=== PATIENT | female | born 1935 | race Caucasian/White ===

== ENCOUNTER 2024-08-09 13:49 | Day surgery (SDC) | payer OTHER, SELFPAY ==
[2024-08-09] VITALS (16 sets, daily range): BP systolic 127–200; BP diastolic 59–91; BMI 31.1; BMI 30.2
[2024-08-09 10:10] LABS: % Basophils 0.3 % (0-2); % Eosinophils 2.5 % (0-6); % Immature Granulocytes 0.3 % (0-0.5); % Lymphocytes 9.2 % (20.5-51.1); % Monocytes 6.9 % (1.7-9.3); % Neutrophils 80.8 % (42.2-75.2); Absolute Eosinophils 0.3 10^3/uL (0-0.7); Absolute Lymphocytes 1.1 10^3/uL (1.2-3.4); Absolute Monocytes 0.8 10^3/uL (0.1-0.6); Absolute Neutrophils 9.4 10^3/uL (1.4-6.5); Hematocrit 39.4 % (37.0-47.0); Hemoglobin 13.6 g/dL (12.0-16.0); Mean Corp Hgb Conc. 34.5 g/dL (33.0-37.0); Mean Corpuscular Hgb 26.9 pg (27.0-31.0); Mean Platelet Volume 10.2 fL (7.4-10.4); Nucleated Red Blood Cells % 0 %; Platelet Count 247 10^3/uL (130-400); Red Blood Cell Count 5.05 10^6/uL (4.20-5.40); Red Cell Dist. Width 14.6 % (11.5-14.5); White Blood Cell Count 11.6 10^3/uL (4.8-10.8)
[2024-08-09 10:38] LABS: ALT (SGPT) 17 U/L (0-35); AST (SGOT) 27 U/L (14-36); Albumin 4.2 g/dl (3.5-5.0); Alkaline Phosphatase 76 U/L (38-126); Blood Urea Nitrogen 15 mg/dl (7-17); Carbon Dioxide 20 mmol/L (22-30); Chloride 102 mmol/L (98-107); Glucose 111 mg/dl (70-99); Potassium 4.2 mmol/L (3.5-5.1); Sodium 135 mmol/L (135-145); Total Bilirubin 0.7 mg/dl (0.2-1.3); Total Protein 6.5 g/dl (6.3-8.2); eGFR 54.19
--- NOTE | 2024-08-09 11:46 | ED.GENMED ---
History of Present Illness
General
Chief Complaint: Dizziness
Source: patient
Exam Limitations: none
Time Seen by Provider: 08/09/24 10:51
Nursing documentation reviewed up to this point in time: agreed with
History of Present Illness
History of Present Illness:
89-year-old female with a past medical history of hypertension, hyperlipidemia, GERD, history of heart block status post PPM (Medtronic) who presents to the ER for evaluation of lightheadedness. Patient reports symptoms started 2 days ago and they
have been constant since that time. She reports consistent symptoms�not clearly positional. She denies syncope. She denies any associated chest pain or palpitations. She denies feeling short of breath. Has not noticed any swelling or pain in
legs. She denies any recent illness or GI symptoms�no nausea, vomiting, diarrhea. Denies any UTI symptoms. She does note that she was recently started on a new blood pressure medication (eplerenone) about a week ago by her landfill gas technician (
Yoandy). She says that when she checked her blood pressure over the past 2 days she noticed that it was running lower (she says the lowest blood pressure was 105 systolic) and so she discontinued the eplerenone yesterday thinking that it could be
causing her symptoms but when they did not improve she came to the emergency room. She does note that she had her pacemaker interrogated during her most recent cardiology visit in early July and was told that her pacemaker battery is nearing
end-of-life.
Past History
Past History
ED Past Medical History: GERD, HTN, Hypercholesterolemia and Other (Sinusitis,)
ED Past Surgical History: Cardiac (Pacemaker), Cholecystectomy and Gynecological (Total hysterectomy)
Social History
Tobacco: Non-smoker
Alcohol: None
Personal:
Living: alone
Employment: Retired
Review of Systems
Review of Systems
All Other Systems: ROS reviewed and negative except as documented in HPI and ROS
Constitutional: Reports fatigue; Denies fever or chills
EENT: Denies sore throat or runny nose
Respiratory: Denies cough or trouble breathing
Cardiac: Denies chest pain, diaphoresis, palpitations or syncope
ABD/GI: Denies abdominal pain, nausea, vomiting or diarrhea
: Denies dysuria, frequency or flank pain
Musculoskeletal: Denies edema, neck pain or back pain
Neurological: Reports dizzy; Denies headache
Phy Exam
Physical Exam
Physical Exam:
General: Awake, alert, oriented x3; no acute distress
Head: Normocephalic, atraumatic
Eyes: Conjunctiva normal, pupils equal round reactive to light bilaterally
Throat: Airway intact, handling secretions
Neck: Trachea midline
Lungs: Clear to auscultation bilaterally, no wheezing, rales, rhonchi
Heart: Regular rate and rhythm, no murmurs, gallops, or rubs
Abd: Soft, non distended, nontender
Neuro: Cranial nerves grossly intact, speech fluid, no gross motor or sensory deficits
Extremities: No edema in extremities, equal pulses in all extremities
Scores
Heart Failure Risk
Heart Failure Risk Score: Not Applicable
Heart Score for Chest Pain Patients
STEMI patient?: Not applicable
Withdrawal Assessment of Alcohol
Withdrawal Assessment Completed?: Not applicable
Course
Orders/Labs/Results
Orders:
Orders
08/09/24 09:40
ECG [Electrocardiogram (*1)] Urgent
Reason for Study: Vertigo / Dizzy
EKG- Treatment ONCE
08/09/24 09:53
Complete Blood Count/With Diff Urgent
Comprehensive Metabolic Panel Urgent
08/09/24 Lunch
NPO
Allow oral meds: Yes
Allow clear liquids: No
08/09/24 10:52
Interrogate Pacemaker- Treatment ONCE
08/09/24 11:46
CARDIOLOGY CONSULT Urgent
Consulting Provider: David Pete
Was physician already notified: Yes
09/17/24 13:26
Admit/Transfer Patient As Directed
Co-Sign Provider:
Level of Care: Observation services
Assign to:: IVU
Physician / Group: CBC
Diagnosis: AV dysynchrony
Reason for Hospitalization: Symptomatic pacemaker syndrome
PRN Pain Medication Management As Directed
May give lesser potent ordered pain med per pt: Yes
preference::
Protocol:: Medication orders for pain may be administered in a
manner that supports deferring to patient preference
when the pt is:
- Requesting an ordered lesser potent pain medication.
Least to most potent pain medications are defined
as: acetaminophen < NSAID < tramadol < opioids
(morphine, oxycodone, hydromorphone).
- Requesting a lesser dose of the same medication IF
ORDERED.
- Requesting a less intrusive route of administration
if both routes are prescribed by the provider (PO <
IV).
Abnormal Lab Results
08/09/24
09:53
WBC 11.6 H 10^3/uL
(4.8-10.8)
MCV 78.0 L fL
(81.0-99.0)
MCH 26.9 L pg
(27.0-31.0)
RDW 14.6 H %
(11.5-14.5)
Absolute Neuts (auto) 9.4 H 10^3/uL
(1.4-6.5)
Absolute Lymphs (auto) 1.1 L 10^3/uL
(1.2-3.4)
Absolute Monos (auto) 0.8 H 10^3/uL
(0.1-0.6)
Neutrophils % 80.8 H %
(42.2-75.2)
Lymphocytes % 9.2 L %
(20.5-51.1)
Carbon Dioxide 20 L mmol/L
(22-30)
Glucose 111 H mg/dl
(70-99)
08/09/24 09:53
08/09/24 09:53
Vital Signs
Initial and Last Documented VS:
Initial Vital Signs
Temp Pulse Resp BP Pulse Ox
37.2 C 65 16 155/71 97
08/09/24 09:37 08/09/24 09:37 08/09/24 09:37 08/09/24 09:37 08/09/24 09:37
Last Documented Vital Signs
Temp Pulse Resp BP Pulse Ox
37.2 C 65 15 152/73 97
08/09/24 09:37 08/09/24 11:30 08/09/24 11:30 08/09/24 11:00 08/09/24 11:30
MDM/Problems Addressed
Differential Diagnosis Includes:
Symptomatic anemia, dehydration/electrolyte derangement, infection, pacemaker syndrome, medication side effect/polypharmacy
MDM/Problems Addressed:
89-year-old female presents for evaluation of lightheadedness and fatigue for the past 2 days�initially she thought it was related to her recently started blood pressure medication but discontinued this yesterday and symptoms have persisted. She is
actually mildly hypertensive here to 155/71 still feels mildly lightheaded. Rest of vitals normal. Physical exam as above. EKG in triage showed ventricular paced rhythm�received a call from reviewing landfill gas technician (who happened to be Dr. Pitt,
patient's primary landfill gas technician) concerned that patient may be experiencing pacemaker syndrome as she does not appear to have AV synchrony on EKG. Will interrogate her device. Check labs including CBC and CMP. Will reassess after the above.
Labs reviewed: CBC shows marginal leukocytosis 11.6, normal hemoglobin. CMP no clinically significant abnormalities. I received report from [facility] and patient's pacemaker did changed to VVI mode yesterday due to low battery; this correlates
with onset of patient's symptoms. Case discussed with cardiology for assessment, concern for pacemaker syndrome.
Cardiology evaluated, will go for generator change later today.
Chronic conditions affecting care:
Heart block status post pacemaker
Acute Exacerbation and/or Progression of Chronic Illness:
Acutely hypertensive
Acute Exacerbation and/or Progression of Chronic Illness: HTN
*Pulse Oximetry
Patient hypoxic: no
*EKG
Interpreted by ED Provider?: Yes
Heart Rate: 65
Rate: normal
Rhythm: ventricular paced
*Critical Care Note
Total Time (30-74mins, 75-104mins- exclusive of procedures): Not Applicable
Data Reviewed
Review of Other/Old Records Reveals: Labs and Records
Source: patient, records and physician
Patient Management
Discussion with other providers: Nuclear Design Engineer (Discussed with cardiology)
Escalation/DeEscalation of care consider admission/obs:
To cardiology service
ED Attending Note
-
Portions of this chart may have been created with voice recognition software.� Occasional wrong word or��sound alike� substitutions may have occurred due to the inherent limitations of voice recognition software.
Discharge Plan
Departure
Patient Disposition: Admit
Date of Disposition: 08/09/24
Time of Disposition: 13:53
Admit to doctor: Juan R
Presentation/result/management discussed w/ accepting MD/DO: cardiology
Discharge Problem:
Pacemaker syndrome
Interventions
Interventions:
*Risk Screen - Suicide Last Done: 08/09/24 11:31
*Neglect/Abuse Screening Last Done: 08/09/24 11:31
ED- Fall Risk Assessment Last Done: 08/09/24 10:45
*ED COVID-19 Vaccine History Last Done: 08/09/24 11:31
ED- Neurological Assessment Last Done: 08/09/24 10:45
ED- Cardiac Assessment Last Done: 08/09/24 10:45
ED Swallowing Screen Last Done: 08/09/24 10:45
--- NOTE | 2024-08-09 13:30 | HPS.HSE ---
Family Physician
-
Family Physician: Eben Jacinto
Trauma Coordinator: Dr. Frederick Pitt
Chief Complaint
-
Dizziness
History of Present Illness
Maira Washington is an 89-year-old female (known to Dr. Pitt, her primary long term care social worker), with complete heart block status post PPM (03/2010), hypertension, dyslipidemia, mild mitral regurgitation, mild tricuspid regurgitation, and paroxysmal
atrial fibrillation (on apixaban), who presented to the ER today with a chief complaint of dizziness. Her dizziness started on Thursday. Initially she thought it correlated with the addition of a new medication, eplerenone. It has been persistent.
She did not take her eplerenone today and has had no improvement. Upon arrival to the ER her Medtronic pacemaker was interrogated. It went into VVI on Thursday when she became symptomatic. She is having no chest pain or shortness of breath.
Medical History
Past Medical History
Past Medical History: Reports Arrhythmia (Paroxysmal atrial fibrillation), GERD, HTN, Hypercholesterolemia and Valvular Disease (Mitral regurgitation, tricuspid regurgitation)
Past Surgical History: Reports Appendectomy and Cholecystectomy
Social History
Tobacco: Non-smoker
Alcohol: None
Drug: None
Employment: Retired
Family History
Family History: Not pertinent
Allergies / Home Medications
Allergies reflects when Allergies were last updated in [facility].
Home Medications with original date entered in [facility]
Allergy/Medication List:
Allergies/intolerances:
Egg
Ibuprofen
Aldactone
Amlodipine
Home medication list:
Ativan 1 mg twice daily as needed anxiety
Diovan HCT 320-25 mg p.o. daily
Apixaban 5 mg p.o. twice daily
Ezetimibe-simvastatin 10-20 mg once daily
Labetalol 200 mg p.o. twice daily
Lansoprazole 30 mg p.o. daily
Montelukast 10 mg p.o. daily
Eplerenone 25 mg daily
Review of Systems
-
History Source: Patient
A 12 point ROS was completed and negative except as noted: Yes
Constitutional: Reports Fatigue
EENT: Reports No Symptoms
Respiratory: Reports No Symptoms
Cardiac: Reports No Symptoms
Abdomen/GI: Reports No Symptoms
: Reports No Symptoms
Musculoskeletal: Reports No Symptoms
Skin: Reports No Symptoms
Neurological: Reports Dizzy and Weakness
Endocrine: Reports No Symptoms
Hematologic/Lymphatic: Reports No Symptoms
Psych: Reports No Symptoms
Physical Exam
Vital Signs
Vital Signs
Temp Pulse Resp BP Pulse Ox
98.9 F 65 15 152/73 97
08/09/24 09:37 08/09/24 11:30 08/09/24 11:30 08/09/24 11:00 08/09/24 11:30
Physical Exam
General: Well Developed, Well Nourished, No Apparent Distress, Comfortable and Conversant
HEENT: NormoCephalic, Anicteric and Moist mucous membranes
Respiratory: Clear and Non Labored Respirations
Cardiac: S1/S2 and Regular Rhythm
Breast: Deferred by me
GI: Soft, Non Tender, Non Distended and Normal Bowel Sounds
Rectal: Deferred by Provider
Genito-urinary: No costovertebral tender
Musculoskeletal: No Clubbing, No Cyanosis and No Edema
Skin: Warm and Dry
Neuro: AO x 3
Hematologic/Lymphatic: No Lymphadenopathy
Psych: Calm
Laboratory Results
-
08/09/24 09:53
08/09/24 09:53
Laboratory Results
Total Bilirubin 0.7 mg/dl (0.2-1.3) 08/09/24 09:53
AST 27 U/L (14-36) 08/09/24 09:53
ALT 17 U/L (0-35) 08/09/24 09:53
Alkaline Phosphatase 76 U/L (38-126) 08/09/24 09:53
Data Reviewed
-
Diagnostic Radiology: Report Reviewed by me
Lab Data: Labs Reviewed by me
Old Records: Reviewed
Impression/Plan
-
BACKGROUND: 89F with paroxysmal atrial fibrillation, hypertension, dyslipidemia, mitral regurgitation, tricuspid regurgitation, and complete heart block status post PPM in Mar, 2010 presented with pacemaker syndrome symptomatic with dizziness,
weakness, and lightheadedness.
Trauma Coordinator: Dr. Pitt
PLAN:
Dizziness in the setting of pacemaker syndrome/AV dyssynchrony
-Generator change today (NPO since breakfast ~07:00)
Paroxysmal atrial fibrillation
-Stable on labetalol
-Oral Anticoagulation: Apixaban 5 mg twice daily, hold for now, resumption per EP cardiology
-[id number]: score at least 4 (HTN, age 75 or more, female gender)
Hypertension
-I started her on eplerenone at her office visit 07/29/2024, BMP stable, resume tomorrow at half the dose (she is worried about hypotension)
-She has documented intolerances to Aldactone (diarrhea) and amlodipine
Dyslipidemia, continue medical therapy
Mild mitral regurgitation
Mild to moderate tricuspid regurgitation
--- NOTE | 2024-08-09 15:56 | ITS.CL.PACE ---
Glass Engraver - Pacemaker Implant
Pacemaker Implant
Procedure Report:
Implantable Dual Chamber Pacemaker Generator Change:
Ms. Washington is a very pleasant 89 years old woman with complete heart block status post PPM (03/2010), hypertension, dyslipidemia, mild mitral regurgitation, mild tricuspid regurgitation, and paroxysmal atrial fibrillation (on apixaban) with end
of battery has gone into VVI mode with battery depletion and AV dyssynchrony associated with dizziness and pre-syncope is here for generator change.
Indications: Complete heart block
Date of the Procedure: 08/09/2024
Pre-Operative Diagnosis: Complete heart block
Post-Operative Diagnosis: Complete heart block
Procedure Performed: DUAL CHAMBER PACEMAKER GENERATOR CHANGE
Performing Physician:
Yeny King MD
Anesthesia:
See anesthesia records
Detailed Description of the Procedure:
The patient was identified using hospital identification and informed consent obtained for the procedure. The risks were explained including, but not limited to: Bleeding, infection, arrhythmia, stroke, vascular/cardiac/lung puncture, surgery,
pacemaker dependency/device malfunction. All questions were answered.
The patient was brought to the electrophysiology laboratory in stable condition in fasting state. Continuous electrocardiographic and hemodynamic monitoring was initiated.
The initial rhythm was ventricular paced rhythm with dissociated atrial beats.
The procedure site was meticulously prepared with surgical scrub and allowed to dry with no pooling. Sterile draping was applied to cover the procedure site.
The left infraclavicular region was prepped and draped in the usual sterile fashion. Local anesthesia was administered subcutaneously using 1% lidocaine / bupivacaine. The incision was made on the previous incision site. The old PPM generator was
accessed and the adhesions were removed with care to avoid damage to the leads. The PPM capsule was cut to access the generator. The old device was freed from the underlying fascia. It was removed from the body. The Weitlaner retractor was placed in
the incision and used as access to skin for unipolar pacing.
The RA pacing lead was first removed and plugged into the new generator. Then the RV lead was removed and placed in the respective locations in the newer generator.
The old pocket and capsule was modified and the excessive scar was removed. A TYRX absorbable antibacterial envelope was used and the device was placed in the pouch with leads and placed in the modified pocket. There was excellent sensing, pacing,
and impedance from the leads.�Bovie cautery, and antibiotics were used.
The wound was irrigated thoroughly with antibiotic solution and closed in 3 layers using 2-0 VLoc, 3 and two layers of 4-0 V loc sutures. Steri-Strips and a bandage were applied externally.�
Procedure End:
The procedure was tolerated well.
Estimated Blood loss:
5 cc
Fluoro time:
0 min
Specimens Removed:
No cultures and no specimens were obtained. No intraoperative pathology was identified.
Urine output:
None
Packs / Drains/ Tubes:
None
Instrument / Sponge Count Correct:
Yes
Complications of the Procedure:
None
Condition of Patient at Time of Transfer:
Hemodynamically stable with no neurological or vascular compromise.
Explanted device
Medtronic pacemaker [id number]; �serial number: [id number]
Device information:�
Generator: RoboCV; Model: [id number]; Serial # [id number]�
����������� Atrial Lead: Medtronic; Model: 5076-45; Serial # [id number] �
����������������������� Measured data in the right atrium was sensing of 7.4 mV waves of atrial fibrillation with an impedance of 437 ohms and threshold of 0.75 V at 0.4 ms.
����������� RV Lead: Medtronic; Model: 5076-52; Serial # [id number]
����������������������� Measured data on the RV lead showed dependent with no underlying R waves with impedance of 608 ohms and threshold of 1.0 V at 0.4ms.
�����������
PROGRAMMING PARAMETERS:�
Nacho parameter settings were DDD 50 (50 - 130 )
����������� Paced AV interval: 180 ms
����������� Sensed AV interval: 150 ms���
Summary:
Successful generator change of dual chamber pacemaker.
Results/Recommendations:
1. Please provide patient with adequate pain control�
Instructions to be given to patient:�
- Please follow up with [facility] at [address] [place] [address] ([phone]) to get your wound checked within 7 days of your discharge.
- Do not wet incision site until after it is evaluated at cardiology clinic. No showers until then. Sponge baths are OK.�
- Allow 'steri strips' to fall off on their own�
- Do not lift left elbow above shoulder, particularly with sudden jerking movements, for 1 month�
- Do not lift anything weighing more than 5 pounds with the left arm for 1 month�
- If you notice any fevers, shortness of breath, lightheadedness, chest pain, or worsening swelling in the wound site, please contact the arrhythmia clinic, contact your dental ceramist assistant, or present to the hospital for evaluation.�
Yeny King MD
Electrophysiology
--- NOTE | 2024-08-09 16:36 | CM ---
Reviewed chart. Met with Mrs. Washington to review discharge plans. She states prior to admission she resides alone in a one story home with nine steps to enter. She states prior to admission she was independent with ambulation and adls. She
states she does not have any DME in the home. She states she has a prescription plan and uses [facility]. The discharge plan is to return home when medically stable.
--- NOTE | 2024-08-09 17:31 | PTCARENOTE ---
Pt admitted from the ED and shortly after arriving was taken to the radiographer cardiac catheterization for a gene change. Pt received post procedure at 1610. Left chest aqucell intact, site clean and dry with no hematoma. Pt denies any pain at this time.
[2024-08-09] MEDS: LIPITOR 10 MG PO (17:37)
[2024-08-09] MEDS: ZETIA 10 MG PO (17:37)
[2024-08-09] MEDS: SINGULAIR 10 MG PO (17:38)
[2024-08-10 04:46] VITALS: BP 148/66
[2024-08-10 05:09] LABS: Hematocrit 38.6 % (37.0-47.0); Hemoglobin 13.1 g/dL (12.0-16.0); Mean Corp Hgb Conc. 33.9 g/dL (33.0-37.0); Mean Corpuscular Hgb 26.8 pg (27.0-31.0); Mean Corpuscular Volume 78.9 fL (81.0-99.0); Mean Platelet Volume 10.4 fL (7.4-10.4); Platelet Count 239 10^3/uL (130-400); Red Blood Cell Count 4.89 10^6/uL (4.20-5.40); Red Cell Dist. Width 14.6 % (11.5-14.5); White Blood Cell Count 6.2 10^3/uL (4.8-10.8)
[2024-08-10 05:31] LABS: Blood Urea Nitrogen 14 mg/dl (7-17); Calcium 9.6 mg/dl (8.4-10.2); Carbon Dioxide 25 mmol/L (22-30); Chloride 101 mmol/L (98-107); Estimated Creatinine Clearance 43 ml/min; Glucose 102 mg/dl (70-99); Magnesium 1.8 mg/dl (1.6-2.3); Potassium 4.1 mmol/L (3.5-5.1); Sodium 138 mmol/L (135-145); eGFR > 60.00
[2024-08-10 07:31] VITALS: BP 155/56
--- NOTE | 2024-08-10 07:45 | W.PN.CD ---
Today's Communication / Plan
-
- Stable for discharge.
Impression / Plan
-
Dizziness in the setting of pacemaker syndrome/AV dyssynchrony
-Battery depleted and PPM went to VVI with AV dyssynchrony
-s/p Gen change - Medtronic on 08/09/24
-Site looks good. No complications.
Paroxysmal atrial fibrillation
-Stable on labetalol
-Oral Anticoagulation: Apixaban 5 mg twice daily, resumed
-[id number]: score at least 4 (HTN, age 75 or more, female gender)
Hypertension
-Borderline due to AV synchrony disruptions.
- BP is somewhat better this AM.
- Started on on eplerenone at her office visit 07/29/2024, BMP stable, resume tomorrow at half the dose (she is worried about hypotension)
-She has documented intolerances to Aldactone (diarrhea) and amlodipine
Dyslipidemia, continue medical therapy
Mild mitral regurgitation
Mild to moderate tricuspid regurgitation
SUBJECTIVE:
Feeling better. no issues. Dizziness improved.
Physical Exam
Vital Signs/Labs
Vital Signs
Temp Pulse Resp BP Pulse Ox
97.9 F 76 20 148/66 95
08/10/24 07:29 08/10/24 05:45 08/10/24 07:29 08/10/24 04:46 08/10/24 07:29
08/09/24 08/10/24 08/11/24
06:59 06:59 06:59
Actual Weight 77.3 kg
08/10/24 04:54
08/10/24 04:54
Magnesium 1.8 mg/dl (1.6-2.3) 08/10/24 04:54
Physical Exam
Constitutional: No acute distress and Comfortable
EENT: Anicteric and Moist mucous membranes
Cardiovascular: Rhythm & rate is regular, Pedal edema is absent, JVD pressure is normal, Systolic murmur absent and Systolic murmur present
Respiratory: Respiratory effort normal, Lungs clear to auscul. and Wheeze Absent
GI: Soft, Non tender and Normal bowel sounds
Neuro/Psych: Alert, Oriented, AO x 3 and Motor deficits absent
Other: Cardiac Device Site
Data Reviewed
-
Date of Service: August 10, 2024
Medical Decision Making: Reviewed Test Results, Independent Historian Assessment, Test Interpretation and Review of Case with other Provider
EKG: Tracing Personally Visualized and interpreted
Echo: Report Reviewed by me
Labs: Labs Reviewed by me
Old Records: Reviewed
[2024-08-10 09:09] VITALS: BP 117/69
[2024-08-10] MEDS: TYLENOL 650 MG PO (09:09)
[2024-08-10] MEDS: PROTONIX 40 MG PO (09:10)
[2024-08-10] MEDS: ELIQUIS 5 MG PO (09:11)
[2024-08-10] MEDS: ORETIC 25 MG PO (09:11)
[2024-08-10] MEDS: DIOVAN 320 MG PO (09:11)
--- NOTE | 2024-08-10 10:49 | W.DS.TRANS ---
DC Summary - Ux Manager
-
Discharge Instructions:
Discharge Diagnosis/Procedures Pacemaker generator change
Diet Low Cholesterol
Driving Restrictions No driving for 24 hours
Bathing Restrictions OK to Shower
Instructions:
Stand-Alone Forms: DC Inst - Implanted Device
Changes to Home Medications: No
Discharge Medications:
DC Medications w/original date entered in [facility]
valsartan 320 mg-hydrochlorothiazide 25 mg tablet (Diovan HCT) 1 tab PO DAILY 07/08/11
montelukast 10 mg tablet 10 mg PO QPM 12/02/16
Circulation Support 1 cap PO DAILY 08/09/24
apixaban 5 mg tablet (Eliquis) 5 mg PO BID 08/09/24
ezetimibe 10 mg-simvastatin 20 mg tablet 1 tab PO QPM 08/09/24
fluticasone propionate 50 mcg/actuation nasal spray,suspension 1 spray intranasal HS 08/09/24
lansoprazole 30 mg capsule,delayed release (Prevacid) 30 mg PO DAILY 08/09/24
lorazepam 1 mg tablet 1 mg PO DAILY 08/09/24
phytosterol 300 mg-pantethine 100 mg capsule (CholestOff Complete) 1 cap PO DAILY 08/09/24
therapeutic multivitamin 1 tab PO DAILY 08/09/24
vitamins A,C,P-mjlw-ebjcat 4,296 mcg-226 mg-90 mg capsule 1 cap PO QPM 08/09/24
eplerenone 25 mg tablet 12.5 mg (1/2 x 25 mg) PO DAILY #1 tab 08/10/24
Home Medication Changes
Pending Results: No
--- NOTE | 2024-08-10 11:07 | PTCARENOTE ---
Patient ready for discharge. Discharge teaching complete, patient verbalized understanding. IV and telemetry removed. Daughter to transport patient to home.
== END 2024-08-10 11:53 | disposition home or self-care (01) ==
LOC: SDS 13:49
PROVIDERS: Nurse Practitioner Adult Health; ATTENDING PHYSICIAN Internal Medicine Cardiovascular Disease; CONSULT PHYSICIAN Internal Medicine; EMERGENCY PHYSICIAN Emergency Medicine; FAMILY PHYSICIAN Family Medicine
DX: I44.2 Atrioventricular block, complete (principal); E78.00 Pure hypercholesterolemia, unspecified; I10 Essential (primary) hypertension; K21.9 Gastro-esophageal reflux disease without esophagitis; I48.0 Paroxysmal atrial fibrillation; I08.1 Rheumatic disorders of both mitral and tricuspid valves; Z79.01 Long term (current) use of anticoagulants; Z79.899 Other long term (current) drug therapy; Z95.0 Presence of cardiac pacemaker
CPT/HCPCS: 33228; 80048; 80053; 83735; 85025; 85027; 93005; 99285; C1785; G0378